=== PATIENT | male | born 1990 | race Caucasian/White ===

== ENCOUNTER 2017-09-21 15:27 | Emergency (ER) | payer BC, OTHER ==
[~2017-09-21] VITALS: Ht 180.3 cm; Wt 98.0 kg
[~2017-09-21 15:27] MED LIST: CEPH250T PO; NO HOME MEDS
[2017-09-21 15:40] VITALS: BP 148/91
[2017-09-21] MEDS ORDERED: NAPR-56 PO (16:34)
== END 2017-09-21 16:50 | disposition home or self-care (01) ==
LOC: ER 15:27
DX: M25.511 Pain in right shoulder (principal)
CPT/HCPCS: 73030; 99284; A4565

== ENCOUNTER 2018-02-01 08:43 | Emergency (ER) | payer BC ==
[~2018-02-01] VITALS: Ht 180.3 cm; Wt 102.0 kg
[2018-02-01 08:52] VITALS: BP 140/98
[2018-02-01] MEDS ORDERED: ketorolac trometh inj. 60 MG/2 ML VIAL IM ONE (09:45)
[2018-02-01] MEDS ORDERED: HYDR-4383 PO (09:55)
== END 2018-02-01 10:12 | disposition home or self-care (01) ==
LOC: ER 08:43
DX: S46.811A Strain of other muscles, fascia and tendons at shoulder and upper arm level, right arm, initial encounter (principal); X58.XXXA Exposure to other specified factors, initial encounter; Y93.72 Activity, wrestling; Y92.89 Other specified places as the place of occurrence of the external cause; Y99.9 Unspecified external cause status
CPT/HCPCS: 73030; 96372; 99284; J1885

== ENCOUNTER 2018-04-28 11:31 | Emergency (ER) | payer BC ==
[~2018-04-28 11:31] MED LIST changes: -CEPH250T PO; +HYDR-4383 PO
[2018-04-28 12:19] VITALS: BP 143/92
[2018-04-28] MEDS ORDERED: NAPR-56 PO (13:35)
[2018-04-28] MEDS ORDERED: TRAM50TA2 PO (13:35)
--- NOTE | 2018-04-28 13:45 | NUR ---
Patient seen and assessed by provider.
== END 2018-04-28 13:57 | disposition home or self-care (01) ==
LOC: ER 11:32
DX: S63.610A Unspecified sprain of right index finger, initial encounter (principal); W22.03XA Walked into furniture, initial encounter; Y93.89 Activity, other specified; Y92.89 Other specified places as the place of occurrence of the external cause; Y99.8 Other external cause status
CPT/HCPCS: 29130; 73140; 99283